=== PATIENT | male | born 1975 | race Caucasian/White ===

== ENCOUNTER 2019-05-24 09:24 | Outpatient (CLI) | payer OTHER ==
[2019-05-24 09:38] LABS: Bilirubin Negative (Negative); Blood, Urine Negative (Negative); Clarity Clear (Clear); Glucose, Urine (Dipstick) Negative (Negative); Leukocyte Negative (Negative); Nitrite Negative (Negative); Protein, Urine (Dipstick) Negative (Neg-Trace); Urobilinogen 0.2 mg/dL (Less than 2)
[2019-05-24 09:40] LABS: #Eosinphils 0.1 thou/uL (0.0-0.7); #Lymphocytes 2.3 thou/uL (1.20-3.40); #Monocytes 0.8 thou/uL (0.11-0.59); #Neutrophils 5.9 thou/uL (1.40-6.50); %Basophils 0.4 % (0.0-1.0); %Eosinophils 1.4 % (0.0-10.0); %Lymphocytes 25.1 % (21.0-51.0); %Monocytes 8.5 % (0.0-10.0); %Neutrophils 64.7 % (42.0-75.0); Hemoglobin 15.9 g/dL (14.0-18.0); Mean Corpuscular HGB CONC 32.9 g/dL (32.0-36.0); Mean Corpuscular Hemoglobin 30.1 pg (27.0-31.0); Mean Corpuscular Volume 91.5 fL (78.0-98.0); Mean Platelet Volume 8.2 fL (7.4-10.4); Platelet Count 319 thou/uL (130-400); RBC Distribution Width 12.5 % (11.5-14.5); Red Blood Cell (RBC) Count 5.28 mill/uL (4.70-6.10); White Blood Cell (WBC) Count 9.1 thou/uL (4.8-10.8)
[2019-05-24 09:50] LABS: ALT (SGPT) 78 U/L (8-55); AST (SGOT) 34 U/L (5-34); Albumin 4.2 g/dL (3.5-5.0); Alkaline Phosphatase 87 U/L (40-110); Anion Gap 12 mmol/L (10-20); BUN (Urea Nitrogen) 18 mg/dL (8.9-20.6); Bacteria/HPF None Seen HPF (None Seen); Bilirubin, Total 0.5 mg/dL (0.2-1.2); Calc. Creatinine Clearance 0 mL/min (70-130); Calcium 9.4 mg/dL (7.8-10.44); Carbon Dioxide 29 mmol/L (22-29); Cardiac Risk 5.8 (Less than 4.5); Chloride 103 mmol/L (98-107); Cholesterol 193 mg/dl (< 200 Desired); Estimated GFR-MDRD 80; Globulin 2.9 g/dL (2.4-3.5); Glucose 125 mg/dL (70-105); HDL Cholesterol 33 mg/dL (>60 Neg Risk); LDL Cholesterol, Calculated 132 mg/dL; Potassium 4.2 mmol/L (3.5-5.1); Protein, Total 7.1 g/dL (6.0-8.3); RBC/HPF None Seen HPF (0-3); Sodium 140 mmol/L (136-145); Squamous Epithelial None Seen HPF (0-3); Triglycerides 141 mg/dL (Less than 150); WBC/HPF None Seen HPF (0-3)
--- NOTE | 2019-05-24 11:12 | RAD ---
CERVICAL SPINE COMPLETE WITH OBLIQUES AND FLEXION EXTENSION: HISTORY: Pain. COMPARISON: None. FINDINGS: There is no acute fracture. There is mild degenerative disk space disease at C5-C6 and C6-C7. Bridgin g anterior osteophytes at C5-C6 and C6-C7. Large anterior disk osteophyte complex at C4-C5. No significant listhesis. No worrisome translation of flexion or extension. There is osseous neural foraminal narrowing bilaterally at C5-C6. There is also left-sided osseous neural foraminal narrowing at C6-C7 on the left. Paraspinal soft tissue unremarkable. There is mild levoscoliosis at the cervicothoracic junction. IMPRESSION: 1. Mild to moderate degenerative changes as described. 2. No significant translation with flexion or extension. POS: OFF
[2019-05-24 11:59] LABS: Hemoglobin A1c 6.5 % (4.0-6.0)
[2019-05-24 12:22] LABS: Creatinine, Urine 60.31 mg/dL (63-166); Microalbumin Urine Less than 1.0 mg/dL (0.5-50.0)
== END 2019-05-24 09:25 | disposition home or self-care (01) ==
LOC: SCSRAD 09:24
PROVIDERS: ATTEND Family Medicine
DX: Z00.00 Encounter for general adult medical examination without abnormal findings (principal); R73.03 Prediabetes; M54.2 Cervicalgia; M47.812 Spondylosis without myelopathy or radiculopathy, cervical region
CPT/HCPCS: 36415; 72052; 80053; 80061; 81001; 82043; 83036; 85025

== ENCOUNTER 2019-06-21 15:10 | Outpatient (CLI) | payer OTHER ==
--- NOTE | 2019-06-21 16:21 | MRI ---
MR CERVICAL SPINE WITHOUT CONTRAST INDICATION: Neck pain with left arm radiculopathy TECHNIQUE: Multiplanar multisequence MR images were obtained of the cervical spine without contrast. COMPARISON: None FINDINGS: Posterior fossa: Within normal limits. Bone marrow signal intensity: Normal Spinal alignment: There is reversal the normal cervical lordosis. Craniocervical junction: Normal appearing. Prevertebral and perivertebral soft tissues: There is soft tissue scar overlying the posterior aspect of C1. Vertebral levels: C2-C3: No appreciable central canal or neuroforaminal narrowing. C3-4: No appreciable central canal or neuroforaminal narrowing. C4-5: No appreciable central canal or neuroforaminal narrowing. C5-C6: There is uncovertebral hypertrophy and facet joint degenerative change greater on the left ind ucing mild to moderate left neural foraminal narrowing. C6-C7: There is a broad-based disc bulge causing mild central canal narrowing without definite cord c ompression. There is uncovertebral hypertrophy. There is mild neural foraminal narrowing bilaterally. C7-T1: No appreciable central canal or neuroforaminal narrowing. IMPRESSION: 1. Mild spondylosis of the cervical spine. 2. Mild to moderate left neural foraminal narrowing at C5-6. 3. Mild central canal narrowing and mild bilateral neural foraminal narrowing at C6-7
== END 2019-06-21 15:11 | disposition home or self-care (01) ==
LOC: SCSMRI 15:10
PROVIDERS: ATTEND Specialist
DX: M48.02 Spinal stenosis, cervical region (principal); M47.22 Other spondylosis with radiculopathy, cervical region
CPT/HCPCS: 72141

== ENCOUNTER 2021-06-18 09:04 | Outpatient (CLI) | payer OTHER | END 2021-06-18 09:05 | disposition home or self-care (01) | LOC: TBSIIMAG 09:04 | PROVIDERS: ATTEND Nurse Practitioner Family | DX: M47.22 Other spondylosis with radiculopathy, cervical region (principal) | CPT/HCPCS: 72141 ==

== ENCOUNTER 2023-01-04 08:47 | Outpatient (CLI) | payer OTHER | END 2023-01-04 08:48 | disposition home or self-care (01) | LOC: SCSMRI 08:47 | PROVIDERS: ATTEND Nurse Practitioner Family | DX: M47.22 Other spondylosis with radiculopathy, cervical region (principal); M47.813 Spondylosis without myelopathy or radiculopathy, cervicothoracic region | CPT/HCPCS: 72141 ==